=== PATIENT | female | born 1970 | race Caucasian/White ===

== ENCOUNTER 2021-12-17 08:13 | Inpatient (IN) | payer BC ==
[~2021-12-17] VITALS: Ht 172.7 cm; Wt 62.2 kg
--- NOTE | 2021-12-17 08:26 | NUR ---
[id number] FOR C/O LEFT LEH AND LEFT LEG PAINS 10/10 S/P FALL AT A [facility]. UUNABLE TO BEAR WEIGHT. AKASH PEDAL PULSES PRESENT. WILL CONTINUE TO MONITOR THE PATIENT.
[2021-12-17] MEDS ORDERED: MORPHINE SULFATE INJ 4 MG/ML DISP.SYRIN ONE (08:52)
[2021-12-17] MEDS ORDERED: ONDANSETRON HCL/PF 4 MG/2 ML VIAL ONE (08:52)
[2021-12-17] MEDS ORDERED: MORPHINE SULFATE INJ 2 MG/ML DISP.SYRIN IV ONE (09:00)
[2021-12-17] MEDS ORDERED: ONDANSETRON HCL/PF 4 MG/2 ML VIAL IV ONE (09:00)
--- NOTE | 2021-12-17 09:38 | NUR ---
COVID ANTIGEN SWAB DONE AND SENT TO THE LAB
--- NOTE | 2021-12-17 10:09 | NUR ---
PAGED DR. SIMEON
[2021-12-17] MEDS ORDERED: ESTR1PAT85 TD (10:15)
[2021-12-17] MEDS ORDERED: CITA20TA16 PO (10:15)
[2021-12-17 10:20] LABS: BASOPHILS % (AUTO) 0.3 % (0.0-2.0); EOSINOPHILS % (AUTO) 0.1 % (0.0-6.0); HEMATOCRIT 37 % (33-45); HEMOGLOBIN 12.5 g/dL (11.5-14.8); LYMPHOCYTES # (AUTO) 0.8 K/uL (0.8-4.8); LYMPHOCYTES % (AUTO) 15.1 % (20.0-44.0); MEAN CORPUSCULAR HGB CONC 34 g/dl (31.0-36.0); MEAN CORPUSCULAR VOLUME 88 fL (82-100); MONOCYTES # (AUTO) 0.5 K/uL (0.1-1.30); MONOCYTES % (AUTO) 9.3 % (2.0-12.0); NEUTROPHILS # (AUTO) 4.1 K/uL (1.8-8.9); NEUTROPHILS % (AUTO) 75.2 % (43.0-81.0); PLATELET COUNT (AUTO) 150 K/uL (150-450); RED BLOOD CELL COUNT(AUTO) 4.26 MIL/uL (4.0-5.2); WHITE BLOOD COUNT (AUTO) 5.4 K/uL (4.3-11.0)
[2021-12-17 10:26] LABS: CALCIUM, SERUM 8.5 mg/dL (8.5-10.1); CREATININE 0.9 mg/dL (0.6-1.3); POTASSIUM 3.7 mmol/L (3.5-5.1)
[2021-12-17] MEDS ORDERED: ONDANSETRON HCL/PF 4 MG/2 ML VIAL IVP PRN (11:00)
[2021-12-17] MEDS ORDERED: ACETAMINOPHEN 325 MG TABLET PO PRN (11:00)
[2021-12-17] MEDS ORDERED: MORPHINE SULFATE INJ 2 MG/ML DISP.SYRIN ONE ×2 (11:30→16:03)
[2021-12-17] MEDS: MORPHINE SULFATE INJ 2 MG/ML DISP.SYRIN IV PRN ×3 (11:36→20:16)
[2021-12-17] MEDS ORDERED: ENOXAPARIN SODIUM 40 MG/0.4 ML DISP.SYRIN SQ ONE (11:40)
[2021-12-17] MEDS: ENOXAPARIN SODIUM 40 MG/0.4 ML DISP.SYRIN SQ SCH (11:43)
--- NOTE | 2021-12-17 16:01 | NUR ---
ROOM 321-1
--- NOTE | 2021-12-17 16:20 | NUR ---
REPORT GIVEN TO NURSE HARRIS FOR DAVEY
--- NOTE | 2021-12-17 16:58 | NUR ---
THE PATIENT IS TRANSFERED TO ROOM 321-1 IN STABLE CONDITION AND PER POLICY.
[2021-12-17 18:53] VITALS: BP 18/67
--- NOTE | 2021-12-17 20:00 | NUR ---
RN NOTE/ CLOSING NOTE PATIENT WAS TRANSFER FROM ED, PATIENT CAME TO UNIT VIA GURNEY IN MEDICAL STABLE CONDITION. V/S TAKEN, STABLE, AND RECORDED. PATIENT WAS ORIENTED TO ROOM SET UP AND SHOWED PATIENT HOW TO USE CALL LIGHT. PATIENT IS AWAKE IN ROOM RESTING, A/O X4. PAIN OF 5/10, PAIN MEDICATION GIVEN. ON ROOM AIR, NO DISTRESS OR SHORTNESS OF BREATH NOTED. IV ACCESS LAC #20G, INTACT, PATENT AND FLUSHING WELL. FALL AND SAFETY MEASURES IN PLACE, BED ALARM ON, BED IN LOW AND LOCK POSITION, CALL LIGHT AND TABLE WITHIN EASY REACH, SIDE RAILS UP X2. WILL ENDORSE TO GEOMAGNETIST.
--- NOTE | 2021-12-17 20:16 | NUR ---
PAIN Patient voided urine, bedpan used. Repositioned in bed, supported LLE with pillows, c/o left hip pain. Given Morphine IV, will reassess pain level.
[2021-12-17 20:50] VITALS: BP 144/87
[2021-12-17 22:36] VITALS: BP 144/87
[2021-12-18] MEDS: MORPHINE SULFATE INJ 2 MG/ML DISP.SYRIN IV PRN ×2 (01:03→05:18)
[2021-12-18 05:22] VITALS: BP 131/77
--- NOTE | 2021-12-18 05:53 | NUR ---
END OF SHIFT REPORT Patient is A/O x4. NPO except medication. Left hip pain managed with IV Morphine. On room air, in no acute distress. Procedure consent signed by patient. Procedural checklist completed and signed by primary nurse. Plan for surgery ORIF left hip fx today. Will endorse to oncoming RN.
[2021-12-18 06:16] LABS: ALBUMIN 3.7 g/dL (3.4-5.0); BILIRUBIN,TOTAL 0.8 mg/dL (0.2-1.0); CALCIUM, SERUM 8.4 mg/dL (8.5-10.1); CREATININE 0.8 mg/dL (0.6-1.3); MAGNESIUM 2.1 mg/dL (1.8-2.4); PHOSPHORUS 3.6 mg/dL (2.5-4.9)
[2021-12-18 06:35] LABS: BASOPHILS % (AUTO) 0.4 % (0.0-2.0); EOSINOPHILS % (AUTO) 1.9 % (0.0-6.0); HEMATOCRIT 37 % (33-45); HEMOGLOBIN 12.6 g/dL (11.5-14.8); LYMPHOCYTES # (AUTO) 1.8 K/uL (0.8-4.8); LYMPHOCYTES % (AUTO) 40.2 % (20.0-44.0); MEAN CORPUSCULAR HGB CONC 34 g/dl (31.0-36.0); MEAN CORPUSCULAR VOLUME 87 fL (82-100); MONOCYTES # (AUTO) 0.4 K/uL (0.1-1.30); NEUTROPHILS # (AUTO) 2.1 K/uL (1.8-8.9); NEUTROPHILS % (AUTO) 48.5 % (43.0-81.0); PLATELET COUNT (AUTO) 145 K/uL (150-450); WHITE BLOOD COUNT (AUTO) 4.4 K/uL (4.3-11.0)
--- NOTE | 2021-12-18 07:30 | NUR ---
MS RN OPENING NOTE RECEIVED PATIENT AWAKE ON BED .PATIENT IS A/O X4. ON ROOM AIR, NO DISTRESS OR SHORTNESS OF BREATH NOTED. NO PAIN NOTED. IV ACCESS ON LAC #20G, INTACT, PATENT AND FLUSHING WELL. FALL AND SAFETY MEASURES IN PLACE, BED ALARM ON, BED IN LOW AND LOCK POSITION, CALL LIGHT AND TABLE WITHIN EASY REACH, SIDE RAILS UP X2. WILL CONTINUE TO MONITOR.
[2021-12-18 08:00] VITALS: BP 120/67
[2021-12-18] MEDS: CITALOPRAM HYDROBROMIDE 20 MG TABLET PO SCH (08:08)
[2021-12-18] MEDS ORDERED: oxyCODONE/APAP (5/325 MG) 1 UDTAB TABLET PO PRN ×3 (08:30→09:00)
[2021-12-18] MEDS: ENOXAPARIN SODIUM 40 MG/0.4 ML DISP.SYRIN SQ SCH (08:44)
--- NOTE | 2021-12-18 09:00 | NUR ---
RN NOTES ANMOL FROM OR CALLED AND STATED THE PATIENT NEEDS PREGNENCY TEST. 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
--- NOTE | 2021-12-18 09:00 | NUR ---
RN NOTES HELD LOVENOX PER DR NEWSOME FOR PATIENT HAVING SURGERY AT 1100.
--- NOTE | 2021-12-18 09:00 | NUR ---
RN NOTES 0835 DR JOSE MIGUEL DURAN GAVE NEW ORDER FOR PERCOCET 10 MG Q 6HRS PRN. ALSO NEW ORDER OF MORPHINE 4MG IV Q3HRS PRN GIVEN.
[2021-12-18] MEDS ORDERED: POLYMYXIN B SULFATE 500,000 UNITS ONE (09:25)
[2021-12-18] MEDS ORDERED: ANESTHESIA TRAY IN PYXIS 1 EA TRAY MC ONE (09:26)
[2021-12-18] MEDS ORDERED: BUPIVACAINE 0.5 % PF 150 MG/30 ML VIAL ONE (09:26)
--- NOTE | 2021-12-18 10:30 | NUR ---
RN NOTES PATIENT LEFT UNIT FOR SURGERY AT 1030 AM.
[2021-12-18] MEDS ORDERED: ROCURONIUM BROMIDE 50 MG/5 ML ONE (10:53)
[2021-12-18] MEDS ORDERED: FENTANYL PF 250MCG/5ML AMPUL ONE (10:53)
[2021-12-18] MEDS ORDERED: MORPHINE SULFATE INJ 4 MG/ML DISP.SYRIN IV PRN (11:00)
[2021-12-18] MEDS ORDERED: FENTANYL PF 100MCG/2ML AMPUL ONE (12:57)
[2021-12-18 13:16] LABS: HEMOGLOBIN 11.8 g/dL (11.5-14.8)
--- NOTE | 2021-12-18 13:53 | NUR ---
RN NOTES PATIENT CAME BACK FROM SURGERY AT 1340 PM. ALERT AND ORIENTED TIMES 4. NO PAIN NOTED AT THIS TIME. NO SOB NOTED. VITAL SIGNS : TS=830/48, P=61, RR=18, O2= 95% RA. T=97.8 ALL NEEDS ATTENDED. PATIENT ABLE TO DRINK ORANGE JUICE, NO RESTRICTION ON THE SURGERY LEG. BOTH LEGS' SCDS ON. WILL CONTINUE TO MONITOR.
[2021-12-18 16:00] VITALS: BP 93/51
[2021-12-18] MEDS: ANCEF 1 GM/50 ML D5W IV SCH ×2 (18:00)
--- NOTE | 2021-12-18 18:53 | NUR ---
MS RN CLOSING NOTE PATIENT AWAKE ON BED .PATIENT IS A/O X4. ON ROOM AIR, NO DISTRESS OR SHORTNESS OF BREATH NOTED. NO PAIN NOTED. IV ACCESS ON RIGHT HAND INTACT, PATENT AND FLUSHING WELL. ALL DUE MEDS GIVEN ORDERED. FALL AND SAFETY MEASURES IN PLACE, BED ALARM ON, BED IN LOW AND LOCK POSITION, CALL LIGHT AND TABLE WITHIN EASY REACH, SIDE RAILS UP X2. WILL ENDORSE FOR DAVEY.
--- NOTE | 2021-12-18 19:00 | NUR ---
RN NOTES: RECEIVED PATIENT AWAKE IN BED OBN STABLE CONDITION, ON PAIN MANAGEMENT, S/P LEFT HIP ORIF, DRESSING WAS CLEAN AND INTACT, PATIENT ON ROOM AIR SATURATING WELL, PATIENT KEPT CLEAN AND DRY ALL NEEDS MET WILL CONTINUE VIKA MONITOR.
[2021-12-18 20:00] VITALS: BP 111/64
[2021-12-18] MEDS: oxyCODONE/APAP (5/325 MG) 1 UDTAB TABLET PO PRN (20:32)
[2021-12-19] MEDS: ANCEF 1 GM/50 ML D5W IV SCH ×2 (03:00)
--- NOTE | 2021-12-19 05:00 | NUR ---
RN NOTES: MEDICATION WS GIVEN MANUALLY AND SIGNED DUE TO COMPUTER OFF WITH ONGOING PREVENTIVE MAINTENANCE A
--- NOTE | 2021-12-19 06:30 | NUR ---
RN CLOSING NOTES: PATIENT SLEEP IN BED COMFORTABLY AROUSABLE TO VERBAL STIMULI, NO COMPLAIN OF PAIN AND DISCOMFORT AT THIS TIME, ALL NEEDS MET, PATIENT KEPT CLEAN AND DRY ENDORSE TO INCOMING SHIFT.
--- NOTE | 2021-12-19 07:24 | NUR ---
MS RN OPENING NOTE PATIENT AWAKE ON BED .PATIENT IS A/O X4. ON ROOM AIR, NO DISTRESS OR SHORTNESS OF BREATH NOTED. NO PAIN NOTED. IV ACCESS ON RIGHT HAND INTACT, PATENT AND FLUSHING WELL. ALL DUE MEDS GIVEN ORDERED. FALL AND SAFETY MEASURES IN PLACE, BED ALARM ON, BED IN LOW AND LOCK POSITION, CALL LIGHT AND TABLE WITHIN EASY REACH, SIDE RAILS UP X2. LEFT HIP DRESSING INTACT. NO BLEEDING NOTED. WILL CONTINUE TO MONITOR.
[2021-12-19] MEDS: oxyCODONE/APAP (5/325 MG) 1 UDTAB TABLET PO PRN ×3 (07:37→16:06)
[2021-12-19 08:00] VITALS: BP 117/79
[2021-12-19] MEDS: CITALOPRAM HYDROBROMIDE 20 MG TABLET PO SCH (09:01)
[2021-12-19] MEDS: ENOXAPARIN SODIUM 40 MG/0.4 ML DISP.SYRIN SQ SCH (09:02)
[2021-12-19] MEDS ORDERED: RIVA10TA PO (10:46)
[2021-12-19] MEDS ORDERED: OXYC-133 PO (10:46)
--- NOTE | 2021-12-19 16:20 | NUR ---
RN NOTES DISCHARGE PATIENT IN STABLE CONDITION .NO PAIN NOTED. NO SOB NOTED. NO DISTRESS NOTED. VITAL SIGNS IN NORMAL RANGES. ALL THE BELONGINGS ACCOUNTED AND SIGNED FOR. IV SITE REMOVED COVERED WITH DRY DRESSING. NO BLEEDING NOTED. ALL THE DISCHARGE INSTRUCTIONS GIVEN TO THE PATIENT. PATIENT VERBALIZED UNDERSTANDING. DANA THE [employer]AIC FLOOR LAYER WHEELED THE PATIENT TO THE LOBBY. PATIENT GOT HER WALKER. PATIENT LEFT HOSPITAL IN STABLE CONDITION. MD AND CHARGE NURSE AWARE OF THE DISCHARGE.
== END 2021-12-19 16:15 | disposition home or self-care (01) | DRG 482 ==
LOC: ER 08:16 → TRANSITION 12:06 → MED 16:30
PROVIDERS: ADMIT Internal Medicine; ATTEND Internal Medicine
PROC: 0QS706Z Reposition Left Upper Femur with Intramedullary Internal Fixation Device, Open Approach (ICD-10-PCS; principal; 2021-12-18)
DX: S72.142A Displaced intertrochanteric fracture of left femur, initial encounter for closed fracture (principal); W01.0XXA Fall on same level from slipping, tripping and stumbling without subsequent striking against object, initial encounter; Y92.511 Restaurant or cafe as the place of occurrence of the external cause; F32.A Depression, unspecified; Z20.822 Contact with and (suspected) exposure to COVID-19; M81.0 Age-related osteoporosis without current pathological fracture; N95.9 Unspecified menopausal and perimenopausal disorder; Z80.3 Family history of malignant neoplasm of breast; Z79.899 Other long term (current) drug therapy; Z79.890 Hormone replacement therapy
CPT/HCPCS: 36415; 71045-TC; 72192-TC; 73020; 73502; 73552; 80048-TC; 80053-TC; 83735-TC; 84100-TC; 84702-TC; 85025-TC; 85027-TC; 85730-TC; 87081-TC; 97116-TC; 97530-TC; A4217; A6209; A6253; C1713; C9803; G0378; J0690; J1100; J1650; J1885; J2270; J2370; J2405; J2704; J3010; J3490; J7030; J7050; J7060